=== PATIENT | female | born 1960 | race African-American/Black ===

== ENCOUNTER 2022-01-25 01:46 | Emergency (ER) | payer MEDICARE, MEDICAID ==
[~2022-01-25] VITALS: Ht 167.6 cm; Wt 75.0 kg
[2022-01-25 01:51] VITALS: BP 117/64
== END 2022-01-25 04:27 | disposition left against medical advice (07) ==
LOC: ER 01:46
DX: Z53.21 Procedure and treatment not carried out due to patient leaving prior to being seen by health care provider (principal)